=== PATIENT | male | born 1945 | race Caucasian/White ===

== ENCOUNTER 2020-12-08 06:33 | Day surgery (SDC) | payer MEDICARE, BC ==
[~2020-12-08] VITALS: Ht 170.2 cm; Wt 115.2 kg
[2020-12-08] VITALS (9 sets, daily range): BP systolic 116–153; BP diastolic 53–75
[2020-12-08] MEDS ORDERED: BIOF1TAB7 PO (07:09)
[2020-12-08] MEDS ORDERED: AMLO10TA13 PO (07:09)
[2020-12-08] MEDS ORDERED: [UNRECOGNIZED DRUG - CODE] PO (07:09)
[2020-12-08] MEDS ORDERED: HYDR25TA4 PO (07:09)
[2020-12-08] MEDS ORDERED: SPIR100T5 PO (07:09)
[2020-12-08] MEDS ORDERED: FLO0.4C PO (07:09)
[2020-12-08] MEDS ORDERED: albumin 25% 100mL bottle x 1 IV PRN (07:10)
[2020-12-08 10:45] LABS: LYMPHOCYTES,BODY FLUID 78 %; MONOCYTES,BODY FLUID 4 %; NEUTROPHILS,BODY FLUID 18 %
[2020-12-08 10:46] LABS: BFAPPEAR CLOUDY
[2020-12-08 10:47] LABS: BF RBC COUNT 13225 /CU MM; BF WBC COUNT 238 /CU MM (0-1000); BFCOLOR OTHER; BFVOLUME 50 ML
[2020-12-08 13:47] LABS: ALBUMIN,BODY FLUID 0.8 G/DL; GLUCOSE,BODY FLUID 126 MG/DL; LDH,BODY FLUID 49 U/L
[2020-12-08 14:03] LABS: TOTAL PROTEIN,BODY FLUID < 2.0 G/DL
== END 2020-12-08 10:20 | disposition home or self-care (01) ==
LOC: SSTAY O 06:33
PROVIDERS: ATTEND Radiology Vascular & Interventional Radiology
DX: R18.8 Other ascites (principal); K74.60 Unspecified cirrhosis of liver; E11.9 Type 2 diabetes mellitus without complications; I10 Essential (primary) hypertension; Z98.890 Other specified postprocedural states; Z79.899 Other long term (current) drug therapy
CPT/HCPCS: 49083; 82042; 82945; 83615; 84157; 89051; P9047

== ENCOUNTER 2020-12-14 08:26 | Day surgery (SDC) | payer MEDICARE, BC ==
[~2020-12-14] VITALS: Ht 170.2 cm; Wt 103.6 kg
[~2020-12-14 08:26] MED LIST: AMLO10TA13 PO; BIOF1TAB7 PO; FLO0.4C PO; HYDR25TA4 PO; SPIR100T5 PO; [UNRECOGNIZED DRUG - CODE] PO
[2020-12-14 08:41] VITALS: BP 132/80
[2020-12-14] MEDS ORDERED: fentaNYL/PF 50MCG/1 ML 2ML syringe ONE ×2 (08:49→09:51)
[2020-12-14] MEDS ORDERED: LIDOcaine Viscous 15ml cup ONE (08:50)
[2020-12-14] MEDS ORDERED: MIDAZolam 1 MG/ML 5ML VIAL ONE (08:50)
[2020-12-14 10:08] VITALS: BP 134/71
[2020-12-14 10:18] VITALS: BP 124/63
[2020-12-14 10:28] VITALS: BP 121/67
== END 2020-12-14 10:46 | disposition home or self-care (01) ==
LOC: GI LAB 08:26
PROVIDERS: ATTEND Internal Medicine Gastroenterology
DX: K92.1 Melena (principal); I85.00 Esophageal varices without bleeding; K44.9 Diaphragmatic hernia without obstruction or gangrene; K31.89 Other diseases of stomach and duodenum; I10 Essential (primary) hypertension; N40.0 Benign prostatic hyperplasia without lower urinary tract symptoms; K74.60 Unspecified cirrhosis of liver; E66.9 Obesity, unspecified; Z68.35 Body mass index [BMI] 35.0-35.9, adult; Z87.891 Personal history of nicotine dependence; Z72.89 Other problems related to lifestyle; Z79.899 Other long term (current) drug therapy
CPT/HCPCS: 43239; 43244; G0500; J2250; J3010; J7040; 99152; A4620

== ENCOUNTER 2021-02-22 07:39 | Day surgery (SDC) | payer MEDICARE, BC ==
[~2021-02-22] VITALS: Ht 170.2 cm; Wt 99.9 kg
[2021-02-22] VITALS (11 sets, daily range): BP systolic 110–132; BP diastolic 27–69
[~2021-02-22 07:39] MED LIST changes: -BIOF1TAB7 PO
[2021-02-22] MEDS ORDERED: SYN0.088T PO (08:39)
[2021-02-22] MEDS ORDERED: albumin 25% 100mL bottle x 1 IV PRN (08:40)
[2021-02-22] MEDS ORDERED: PANT-47 PO (08:40)
[2021-02-22] MEDS ORDERED: [UNRECOGNIZED DRUG - OTHER] PO (08:42)
[2021-02-22] MEDS ORDERED: FURO40TA4 PO (08:43)
[2021-02-22] MEDS ORDERED: FURO-150 PO (08:44)
== END 2021-02-22 11:15 | disposition home or self-care (01) ==
LOC: SSTAY O 07:39
PROVIDERS: ATTEND Radiology Diagnostic Radiology
DX: R18.8 Other ascites (principal); R14.0 Abdominal distension (gaseous); I10 Essential (primary) hypertension; E11.9 Type 2 diabetes mellitus without complications; K74.60 Unspecified cirrhosis of liver; Z98.890 Other specified postprocedural states; Z79.899 Other long term (current) drug therapy
CPT/HCPCS: 49083; P9047

== ENCOUNTER 2021-03-16 06:06 | Day surgery (SDC) | payer MEDICARE, BC ==
[2021-03-16] VITALS (9 sets, daily range): BP systolic 106–140; BP diastolic 43–71
[~2021-03-16] VITALS: Ht 170.2 cm; Wt 99.9 kg
[~2021-03-16 06:06] MED LIST changes: +FURO-150 PO; +FURO40TA4 PO; -HYDR25TA4 PO; +PANT-47 PO; -SPIR100T5 PO; +SYN0.088T PO; +[UNRECOGNIZED DRUG - OTHER] PO
[2021-03-16] MEDS ORDERED: albumin 25% 100mL bottle x 1 IV PRN (06:30)
== END 2021-03-16 10:25 | disposition home or self-care (01) ==
LOC: SSTAY O 06:06
PROVIDERS: ATTEND Radiology Vascular & Interventional Radiology
DX: R18.8 Other ascites (principal); R14.0 Abdominal distension (gaseous); I10 Essential (primary) hypertension; E11.9 Type 2 diabetes mellitus without complications; Z98.890 Other specified postprocedural states; F10.21 Alcohol dependence, in remission; Z79.899 Other long term (current) drug therapy
CPT/HCPCS: 49083; P9047

== ENCOUNTER 2021-04-12 08:54 | Day surgery (SDC) | payer MEDICARE, BC ==
[~2021-04-12] VITALS: Ht 170.2 cm; Wt 101.8 kg
[2021-04-12] VITALS (9 sets, daily range): BP systolic 15–138; BP diastolic 55–73
[2021-04-12] MEDS: albumin 25% 100mL bottle x 1 IV PRN ×2 (09:45→09:46)
== END 2021-04-12 11:30 | disposition home or self-care (01) ==
LOC: SSTAY O 08:54
PROVIDERS: ATTEND Radiology Vascular & Interventional Radiology
DX: K70.31 Alcoholic cirrhosis of liver with ascites (principal); I10 Essential (primary) hypertension; E11.9 Type 2 diabetes mellitus without complications; Z98.890 Other specified postprocedural states; Z72.89 Other problems related to lifestyle; Z79.899 Other long term (current) drug therapy
CPT/HCPCS: 49083; P9047

== ENCOUNTER 2021-07-02 06:50 | Day surgery (SDC) | payer MEDICARE, BC ==
[2021-07-02] VITALS (7 sets, daily range): BP systolic 108–124; BP diastolic 49–60
[~2021-07-02] VITALS: Ht 170.2 cm; Wt 85.5 kg
[~2021-07-02 06:50] MED LIST changes: -FURO40TA4 PO
[2021-07-02] MEDS ORDERED: LIDOcaine 1% 30ml preserv. free vial SQ STA (07:05)
[2021-07-02] MEDS ORDERED: normal saline 1000ml 1,000 ML IV PRN (07:15)
[2021-07-02] MEDS ORDERED: albumin 25% 100mL bottle x 1 IV PRN (07:15)
== END 2021-07-02 10:00 | disposition home or self-care (01) ==
LOC: SSTAY O 06:50
PROVIDERS: ATTEND Radiology Vascular & Interventional Radiology
DX: R18.8 Other ascites (principal); R14.0 Abdominal distension (gaseous); I10 Essential (primary) hypertension; E11.9 Type 2 diabetes mellitus without complications; Z98.890 Other specified postprocedural states; Z79.899 Other long term (current) drug therapy
CPT/HCPCS: 49083; P9047

== ENCOUNTER 2021-07-19 08:51 | Emergency (ER) | payer MEDICARE, BC ==
[~2021-07-19] VITALS: Ht 170.2 cm; Wt 80.0 kg
[2021-07-19 10:39] VITALS: BP 114/58
[2021-07-20] MEDS ORDERED: SPIR25TA5 PO (12:33)
== END 2021-07-19 12:07 | disposition left against medical advice (07) ==
LOC: ER 09:02
DX: R10.9 Unspecified abdominal pain (principal); Z53.21 Procedure and treatment not carried out due to patient leaving prior to being seen by health care provider

== ENCOUNTER 2021-07-20 06:37 | Emergency (ER) | payer MEDICARE, BC ==
[~2021-07-20] VITALS: Ht 170.2 cm; Wt 81.0 kg
[2021-07-20 09:50] LABS: BASOPHILS # (AUTO) 0.1 X10'3 (0-0.2); BASOPHILS % (AUTO) 1.1 % (0-1); EOSINOPHILS # (AUTO) 0.1 X10'3 (0-0.9); EOSINOPHILS % (AUTO) 1.7 % (0-6); HEMATOCRIT 36.3 % (42.0-52.0); HEMOGLOBIN 12.3 g/dl (14.0-17.9); LYMPHOCYTES # (AUTO) 1.2 X10'3 (1.1-4.8); LYMPHOCYTES % (AUTO) 19.5 % (21-51); MEAN CORPUSCULAR HEMOGLOBIN 28.4 PG (27.0-31.0); MEAN CORPUSCULAR HGB CONC 33.8 g/dL (33.0-36.5); MEAN CORPUSCULAR VOLUME 84.1 FL (78-98); MEAN PLATELET VOLUME 6.9 FL (7.4-10.4); MONOCYTES # (AUTO) 0.6 X10'3 (0-0.9); MONOCYTES % (AUTO) 10.5 % (2-12); NEUTROPHILS % (AUTO) 67.2 % (42-75); PLATELET COUNT 321 X10'3 (140-440); RED BLOOD COUNT 4.31 X10'6 (4.70-6.10)
[2021-07-20 09:56] LABS: APTT 31 SECONDS (22-32)
[2021-07-20 10:10] LABS: ALANINE AMINOTRANSFERASE 11 U/L (12-78); ALBUMIN 2.4 G/DL (3.4-5.0); ALBUMIN/GLOBULIN RATIO 0.4 (1.1-1.5); ALKALINE PHOSPHATASE 136 IU/L (46-116); ANION GAP 12 (8-16); ASPARTATE AMINO TRANSFERASE 34 U/L (10-37); BILIRUBIN,TOTAL 1.3 MG/DL (0.1-1.0); BLOOD UREA NITROGEN 15 MG/DL (7-18); CALCIUM 8.7 MG/DL (8.5-10.1); CHLORIDE 101 MMOL/L (99-107); CREATININE 1.36 MG/DL (0.60-1.10); GLUCOSE 99 MG/DL (70-104); POTASSIUM 4.6 MMOL/L (3.5-5.1); SODIUM 136 MMOL/L (135-145); TOTAL PROTEIN 8.3 G/DL (6.4-8.2); eGFR 51 ML/MIN
--- NOTE | 2021-07-20 10:33 | NUR ---
Pt here to have paracentesis and is covid +
[2021-07-20] MEDS ORDERED: LIDOcaine 1% 30ml preserv. free vial IJ ONE (10:35)
[2021-07-20 10:40] VITALS: BP 120/61
[2021-07-20 11:05] VITALS: BP 105/55
[2021-07-20] MEDS ORDERED: albumin (human) 25% 100 ML IV solution IV ONE (11:15)
--- NOTE | 2021-07-20 11:47 | NUR ---
Pt had 7.5 liters off from paracentesis.
[2021-07-20] MEDS ORDERED: SPIR25TA5 PO (12:33)
[2021-07-20 13:00] VITALS: BP 110/55
== END 2021-07-20 13:05 | disposition home or self-care (01) ==
LOC: ER 06:38
DX: U07.1 COVID-19 (principal); K72.90 Hepatic failure, unspecified without coma; R18.8 Other ascites; R06.02 Shortness of breath; R05.9 Cough, unspecified; Z79.899 Other long term (current) drug therapy
CPT/HCPCS: 36415; 49083; 71045; 80053; 85025; 85610; 85730; 96365; 99285; P9047

== ENCOUNTER 2021-08-02 07:40 | Day surgery (SDC) | payer MEDICARE, BC ==
[~2021-08-02] VITALS: Ht 170.2 cm; Wt 83.1 kg
[2021-08-02] VITALS (10 sets, daily range): BP systolic 101–125; BP diastolic 51–70
[~2021-08-02 07:40] MED LIST changes: +SPIR25TA5 PO
[2021-08-02] MEDS ORDERED: LIDOcaine 1% 30ml preserv. free vial SQ STA (08:01)
[2021-08-02] MEDS: albumin 25% 100mL bottle x 1 IV PRN ×2 (08:46→09:28)
== END 2021-08-02 10:40 | disposition home or self-care (01) ==
LOC: SSTAY O 07:40
PROVIDERS: ATTEND Radiology Vascular & Interventional Radiology
DX: R18.8 Other ascites (principal); R14.0 Abdominal distension (gaseous); I10 Essential (primary) hypertension; E11.9 Type 2 diabetes mellitus without complications; K74.60 Unspecified cirrhosis of liver; Z87.19 Personal history of other diseases of the digestive system; Z98.890 Other specified postprocedural states
CPT/HCPCS: 49083; J3490; P9047

== ENCOUNTER 2021-08-16 08:53 | Day surgery (SDC) | payer MEDICARE, BC ==
[~2021-08-16] VITALS: Ht 170.2 cm; Wt 84.3 kg
[2021-08-16] VITALS (11 sets, daily range): BP systolic 95–133; BP diastolic 45–76
[~2021-08-16 08:53] MED LIST changes: +LIDOcaine 1% 30ml preserv. free vial SQ STA
[2021-08-16] MEDS: albumin 25% 100mL bottle x 1 IV PRN ×2 (09:39→10:26)
== END 2021-08-16 11:30 | disposition home or self-care (01) ==
LOC: SSTAY O 08:53
PROVIDERS: ATTEND Preventive Medicine Aerospace Medicine
DX: R18.8 Other ascites (principal); R14.0 Abdominal distension (gaseous); K74.60 Unspecified cirrhosis of liver; I10 Essential (primary) hypertension; E11.9 Type 2 diabetes mellitus without complications; Z98.890 Other specified postprocedural states; Z79.899 Other long term (current) drug therapy; Z86.16 Personal history of COVID-19
CPT/HCPCS: 49083; J3490; P9047

== ENCOUNTER 2021-08-24 07:17 | Day surgery (SDC) | payer MEDICARE, BC ==
[~2021-08-24] VITALS: Ht 170.2 cm; Wt 81.8 kg
[2021-08-24] VITALS (14 sets, daily range): BP systolic 88–128; BP diastolic 41–69
[~2021-08-24 07:17] MED LIST changes: -FURO-150 PO; -LIDOcaine 1% 30ml preserv. free vial SQ STA; -SPIR25TA5 PO
[2021-08-24] MEDS ORDERED: AMOX-CLAV PO (07:38)
[2021-08-24] MEDS: albumin 25% 100mL bottle x 1 IV PRN ×3 (09:42→10:54)
== END 2021-08-24 12:30 | disposition home or self-care (01) ==
LOC: SSTAY O 07:17
PROVIDERS: ATTEND Radiology Vascular & Interventional Radiology
DX: R18.8 Other ascites (principal); R14.0 Abdominal distension (gaseous); I10 Essential (primary) hypertension; E11.9 Type 2 diabetes mellitus without complications; K74.60 Unspecified cirrhosis of liver; Z98.890 Other specified postprocedural states; Z86.16 Personal history of COVID-19; Z79.899 Other long term (current) drug therapy
CPT/HCPCS: 49083; P9047

== ENCOUNTER 2021-08-29 08:55 | Day surgery (SDC) | payer MEDICARE, BC ==
[~2021-08-29] VITALS: Ht 170.2 cm; Wt 75.9 kg
[~2021-08-29 08:55] MED LIST changes: +AMOX-CLAV PO
[2021-08-29 09:15] VITALS: BP 120/64
[2021-08-29] MEDS ORDERED: LEVO50CA4 PO (09:33)
[2021-08-29] MEDS ORDERED: ASCO-139 PO (09:40)
[2021-08-29] MEDS ORDERED: FURO-150 PO (09:41)
[2021-08-29] MEDS ORDERED: CHOL200012 PO (09:42)
[2021-08-29] MEDS ORDERED: fentaNYL/PF 50MCG/1 ML 2ML syringe ONE (09:47)
[2021-08-29] MEDS ORDERED: LIDOcaine Viscous 15ml cup ONE (09:48)
[2021-08-29] MEDS ORDERED: MIDAZolam 1 MG/ML 5ML VIAL ONE (09:48)
[2021-08-29 10:08] VITALS: BP 113/68
[2021-08-29 10:18] VITALS: BP 114/67
[2021-08-29 10:28] VITALS: BP 109/67
[2021-08-29 10:38] VITALS: BP 109/60
== END 2021-08-29 10:55 | disposition home or self-care (01) ==
LOC: GI LAB 08:55
PROVIDERS: ATTEND Internal Medicine Gastroenterology
DX: I85.00 Esophageal varices without bleeding (principal); K44.9 Diaphragmatic hernia without obstruction or gangrene; K76.6 Portal hypertension; K31.89 Other diseases of stomach and duodenum; K74.60 Unspecified cirrhosis of liver; E66.9 Obesity, unspecified; Z68.26 Body mass index [BMI] 26.0-26.9, adult; Z72.89 Other problems related to lifestyle; Z79.899 Other long term (current) drug therapy
CPT/HCPCS: 43244; G0500; J2250; J3010; J7040; Z7512; 99152; A4620

== ENCOUNTER 2021-09-06 07:48 | Day surgery (SDC) | payer MEDICARE, BC ==
[2021-09-06] VITALS (7 sets, daily range): BP systolic 100–127; BP diastolic 51–68
[~2021-09-06] VITALS: Ht 170.2 cm; Wt 81.0 kg
[~2021-09-06 07:48] MED LIST changes: -AMOX-CLAV PO; +ASCO-139 PO; +CHOL200012 PO; +FURO-150 PO; +LEVO50CA4 PO; -SYN0.088T PO; -[UNRECOGNIZED DRUG - CODE] PO; -[UNRECOGNIZED DRUG - OTHER] PO
[2021-09-06] MEDS ORDERED: LIDOcaine 1%/PF 5ML 10 MG/ML VIAL SQ ONE (08:05)
[2021-09-06] MEDS: albumin 25% 100mL bottle x 1 IV PRN ×2 (10:01→10:45)
== END 2021-09-06 11:55 | disposition home or self-care (01) ==
LOC: SSTAY O 07:48
PROVIDERS: ATTEND Radiology Diagnostic Radiology
DX: R18.8 Other ascites (principal); R14.0 Abdominal distension (gaseous); K74.60 Unspecified cirrhosis of liver; E11.9 Type 2 diabetes mellitus without complications; I10 Essential (primary) hypertension; Z98.890 Other specified postprocedural states; Z79.899 Other long term (current) drug therapy
CPT/HCPCS: 49083; P9047

== ENCOUNTER 2021-09-18 07:42 | Day surgery (SDC) | payer MEDICARE, BC ==
[2021-09-18] VITALS (8 sets, daily range): BP systolic 98–105; BP diastolic 52–71
[~2021-09-18] VITALS: Ht 170.2 cm; Wt 76.7 kg
[2021-09-18] MEDS ORDERED: LIDOcaine 1%/PF 5ML 10 MG/ML VIAL SQ ONE (08:10)
[2021-09-18] MEDS: albumin 25% 100mL bottle x 1 IV PRN ×2 (09:20→09:48)
== END 2021-09-18 10:45 | disposition home or self-care (01) ==
LOC: SSTAY O 07:42
PROVIDERS: ATTEND Radiology Vascular & Interventional Radiology
DX: R18.8 Other ascites (principal); R14.0 Abdominal distension (gaseous); K74.60 Unspecified cirrhosis of liver; I10 Essential (primary) hypertension; E11.9 Type 2 diabetes mellitus without complications; Z98.890 Other specified postprocedural states; Z79.899 Other long term (current) drug therapy
CPT/HCPCS: 49083; J3490; P9047

== ENCOUNTER 2021-09-28 07:47 | Day surgery (SDC) | payer MEDICARE, BC ==
[~2021-09-28] VITALS: Ht 170.2 cm; Wt 70.4 kg
[2021-09-28] VITALS (7 sets, daily range): BP systolic 103–121; BP diastolic 54–65
[~2021-09-28 07:47] MED LIST changes: -FURO-150 PO; +LIDOcaine 1%/PF 5ML 10 MG/ML VIAL IJ ONE
[2021-09-28] MEDS ORDERED: AMLO2.5T5 PO (08:05)
[2021-09-28] MEDS ORDERED: albumin 25% 100mL bottle x 1 IV PRN (08:10)
== END 2021-09-28 10:32 | disposition home or self-care (01) ==
LOC: SSTAY O 07:47
PROVIDERS: ATTEND Radiology Vascular & Interventional Radiology
DX: R18.8 Other ascites (principal); R14.0 Abdominal distension (gaseous); E11.9 Type 2 diabetes mellitus without complications; I10 Essential (primary) hypertension; K74.60 Unspecified cirrhosis of liver; Z98.890 Other specified postprocedural states; Z86.16 Personal history of COVID-19; Z79.899 Other long term (current) drug therapy
CPT/HCPCS: 49083; J3490; P9047

== ENCOUNTER 2021-10-02 11:26 | Emergency (ER) | payer MEDICARE, BC ==
[~2021-10-02] VITALS: Ht 170.2 cm; Wt 63.6 kg
[~2021-10-02 11:26] MED LIST changes: -AMLO10TA13 PO; +AMLO2.5T5 PO; -LIDOcaine 1%/PF 5ML 10 MG/ML VIAL IJ ONE
[2021-10-02 12:02] LABS: BASOPHILS # (AUTO) 0.1 X10'3 (0-0.2); EOSINOPHILS # (AUTO) 0.1 X10'3 (0-0.9); HEMATOCRIT 35.3 % (42.0-52.0); HEMOGLOBIN 11.7 g/dl (14.0-17.9); MONOCYTES # (AUTO) 0.5 X10'3 (0-0.9); WHITE BLOOD COUNT 4.1 X10'3 (4.5-11.0)
[2021-10-02 12:04] LABS: EOSINOPHILS % (AUTO) 2.6 % (0-6); LYMPHOCYTES % (AUTO) 23.4 % (21-51); MEAN CORPUSCULAR VOLUME 84.7 FL (78-98); MEAN PLATELET VOLUME 7.2 FL (7.4-10.4); MONOCYTES % (AUTO) 12.4 % (2-12); NEUTROPHILS # (AUTO) 2.4 X10'3 (1.8-7.7); NEUTROPHILS % (AUTO) 59.5 % (42-75); PLATELET COUNT 330 X10'3 (140-440); RED BLOOD COUNT 4.17 X10'6 (4.70-6.10); RED CELL DISTRIBUTION WIDTH 17.6 % (11.5-14.5)
[2021-10-02 12:05] LABS: BASOPHILS % (AUTO) 1.4 % (0-1)
[2021-10-02 12:15] LABS: ALANINE AMINOTRANSFERASE 46 U/L (12-78); ALBUMIN 2.5 G/DL (3.4-5.0); ALBUMIN/GLOBULIN RATIO 0.5 (1.1-1.5); ALKALINE PHOSPHATASE 326 IU/L (46-116); ANION GAP 12 (8-16); ASPARTATE AMINO TRANSFERASE 79 U/L (10-37); BILIRUBIN,TOTAL 0.6 MG/DL (0.1-1.0); BLOOD UREA NITROGEN 36 MG/DL (7-18); BUN/CREATININE RATIO 26.3 (5.4-32.0); CALCIUM 9.4 MG/DL (8.5-10.1); CHLORIDE 106 MMOL/L (99-107); CREATININE 1.37 MG/DL (0.60-1.10); GLUCOSE 103 MG/DL (70-104); POTASSIUM 4.5 MMOL/L (3.5-5.1); SODIUM 140 MMOL/L (135-145); TOTAL CARBON DIOXIDE 21.9 MMOL/L (24-32); TOTAL PROTEIN 7.6 G/DL (6.4-8.2); eGFR 51 ML/MIN
[2021-10-02] MEDS ORDERED: normal saline 1000ML IV soln IVB ONE (14:05)
[2021-10-02] MEDS ORDERED: famotidine/PF 10 mg/ml inj IV ONE (14:05)
[2021-10-02] MEDS ORDERED: iohexol 300mg/ml 100ml inj. ONE (14:45)
[2021-10-02] MEDS ORDERED: FLUT16SP2 BOTHNARES (17:14)
[2021-10-02] MEDS ORDERED: PANT-47 PO (17:14)
[2021-10-02] MEDS ORDERED: PRED10TA23 PO (17:14)
[2021-10-02] MEDS ORDERED: PSEU-259 PO (17:14)
[2021-10-02] MEDS ORDERED: GUAI120015 PO (17:14)
[2021-10-02 17:15] VITALS: BP 116/60
== END 2021-10-02 18:20 | disposition home or self-care (01) ==
LOC: ER 11:28
DX: R13.10 Dysphagia, unspecified (principal); Z20.822 Contact with and (suspected) exposure to COVID-19; J32.9 Chronic sinusitis, unspecified; K70.31 Alcoholic cirrhosis of liver with ascites; R53.1 Weakness; J02.9 Acute pharyngitis, unspecified; R09.89 Other specified symptoms and signs involving the circulatory and respiratory systems; R63.4 Abnormal weight loss; Z79.899 Other long term (current) drug therapy
CPT/HCPCS: 36415; 71260; 74177; 80053; 85025; 87635; 96361; 96374; 99285; C9803; J3490; J7030; Q9967